=== PATIENT | male | born 1995 | race Asian ===

== ENCOUNTER 2018-02-25 02:44 | Emergency (ER) | payer SELFPAY ==
[~2018-02-25] VITALS: Ht 182.9 cm; Wt 95.3 kg
--- OUTSIDE RECORDS SUMMARY | 2018-02-25 02:51 | XMS REPORT ---
Author Author DANI GAMBOA [facility] Address [address] [place] [address] Care Team Providers Care Bar Turner Name Role Phone DANI GAMBOA Unavailable PROBLEMS Unknown Problems ALLERGIES No Information ENCOUNTERS Encounter Location Date Diagnosis [facility] [address] [facility] [id number] [address] Apr, Visit for TB skin test Z11.1 IMMUNIZATIONS No Known Immunizations SOCIAL HISTORY Never Assessed REASON FOR VISIT TB skin test- Antione Allred RN PLAN OF CARE Activity Details Follow Up 48-72 hours Reason: VITAL SIGNS MEDICATIONS Unknown Medications RESULTS No Results PROCEDURES Procedure Date Ordered Result Body Site TB INTRADERMAL 2017-04-26 N/A TB INTRADERMAL TEST Apr 26, 2017 INSTRUCTIONS MEDICATIONS ADMINISTERED No Known Medications
[2018-02-25] MEDS ORDERED: RT-ALBUTEROL/IPRATROPIUM 3 ML (DUONEB) VIAL ONE (02:53)
[2018-02-25] MEDS ORDERED: RT-ALBUTEROL/IPRATROPIUM 3 ML (DUONEB) VIAL INH ONE (03:00)
[2018-02-25] MEDS ORDERED: RX-ALBUTEROL INHALER (PROAIR) 8 GM IH STA (03:02)
--- NOTE | 2018-02-25 03:40 | ED Respiratory ---
General Chief Complaint: Respiratory Problems Stated Complaint: ASTHMA ATTACK Nursing Triage Note: AMBULATORY TO ED WITH C/O HAVING ASTHMA ATTACK. NO LABORED BREATHING UPON TRIAGE. 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 Source: patient Exam Limitations: no limitations History of Present Illness Date Seen by Provider: Feb 25, 2018 Time Seen by Provider: 02:49 Initial Comments PT ARRIVES VIA POV C/O ASTHMA ATTACK--BEGAN 30 MINUTES AGO STATES HE HAS BEEN AT A FRIEND'S HOUSE TONIGHT--DOGS, CATS, SMOKING IN HOME BEGAN HAVING DIFFICULTY BREATHING, CHEST TIGHTNESS AND PAIN ON BREATHING STATES SYMPTOMS HAVE IMPROVED SINCE BEING OUT IN COLD AIR PT STATES HE RARELY HAS ASTHMA FLARE-UP'S, AND LAST ONE WAS 7 YEARS AGO. DOES NOT HAVE AN INHALER, ALTHOUGH HE HAS BEEN PRESCRIBED THEM NO FEVER OR RECENT ILLNESS PT HAS HAD 3-4 DRINKS TONIGHT PCP: DR. CASAS Allergies and Home Medications Allergies Coded Allergies: No Known Drug Allergies (Unverified , 02/25/18) Patient Home Medication List Home Medication List Reviewed: Yes Review of Systems Review of Systems Constitutional: no symptoms reported EENTM: no symptoms reported Respiratory: see HPI, short of breath Cardiovascular: see HPI, chest pain Gastrointestinal: no symptoms reported Genitourinary: no symptoms reported Musculoskeletal: no symptoms reported Skin: no symptoms reported Psychiatric/Neurological: No Symptoms Reported Hematologic/Lymphatic: No Symptoms Reported Immunological/Allergic: no symptoms reported Past Iiggduu-Sxmhgg-Abrwls Hx Patient Social History Alcohol Use: Occasionally Uses Recreational Drug Use: No Smoking Status: Never a Smoker 2nd Hand Smoke Exposure: Yes Recent Foreign Travel: No Contact w/Someone Who Travel: No Recent Infectious Disease Expo: No Recent Hopitalizations: No Immunizations Up To Date Tetanus Booster (TDap): Less than 5yrs PED Vaccines UTD: Yes Seasonal Allergies Seasonal Allergies: Yes Past Medical History Surgeries: No Respiratory: Yes Asthma Cardiac: No Neurological: No Genitourinary: No Gastrointestinal: No Musculoskeletal: No Endocrine: No HEENT: No Cancer: No Psychosocial: No Integumentary: No Blood Disorders: No Physical Exam Vital Signs - First Documented 02/25/18 02/25/18 02/25/18 02:49 03:05 03:47 Temp 99.7 Pulse 107 Resp 19 B/P (MAP) 145/98 (114) Pulse Ox 99 O2 Delivery Room Air Capillary Refill : Less Than 3 Seconds Height: 6'0" Weight: 210lbs. oz. 95.641330mq; BMI Method:Stated General Appearance: WD/WN, no apparent distress, other (FAINT ODOR OF ETOH) HEENT: PERRL/EOMI, normal ENT inspection (EXCEPT FOR POST NASAL DRAINAGE), TMs normal, pharynx normal Neck: normal inspection Respiratory: normal breath sounds, no respiratory distress, no accessory muscle use Cardiovascular: regular rate, rhythm, no murmur Gastrointestinal: non tender, soft Extremities: normal inspection, normal capillary refill Neurologic/Psychiatric: checkman II-XII nml as tested, no motor/sensory deficits, alert, normal mood/affect, oriented x 3 Skin: normal color, warm/dry Progress/Results/Core Measures Suspected Sepsis Recent Fever Within 48 Hours: No Infection Criteria Present: None New/Unexplained Altered Menta: No Sepsis Screen: No Definite Risk SIRS Temperature:99.7 Pulse: 107 Respiratory Rate: Blood Pressure 145 /98 Mean: 114 Results/Orders My Orders Orders - KAHLIL MCCALL DO Albuterol/Ipra Inhalation Soln (Duoneb I (02/25/18 02:53) Chest Pa/Lat (2 View) (02/25/18 02:58) Albuterol/Ipra Inhalation Soln (Duoneb I (02/25/18 03:00) Rt Request For Service (02/25/18 02:58) Svn Small Volume Nebulizer (02/25/18 02:58) Rx-Albuterol Inhaler (Rx-Proair) (02/25/18 03:02) Medications Given in ED Current Medications Medications Dose Ordered Sig/John Route Start Time Stop Time Status Last Admin Dose Admin Albuterol/ Ipratropium 3 ml ONCE ONCE INH 02/25/18 03:00 02/25/18 03:01 DC 02/25/18 02:57 3 ML Vital Signs/I&O 02/25/18 02/25/18 02/25/18 02/25/18 02:49 03:05 03:06 03:47 Temp 99.7 99.7 Pulse 107 90 Resp 19 B/P (MAP) 145/98 (114) 129/70 (89) Pulse Ox 99 99 99 O2 Delivery Room Air Room Air Room Air Room Air Capillary Refill : Less Than 3 Seconds Blood Pressure Mean: 114 Progress Note : Progress Note GIVEN DUO NEB TREATMENT, STATES HE FEELS MUCH BETTER. INCREASED AERATION AFTER NEB TREATMENT Diagnostic Imaging Comments CXR--NO ACUTE PROCESS, PENDING RADIOLOGIST REVIEW Reviewed: Reviewed by Me Departure Impression Primary Impression: Asthma exacerbation Disposition: HOME, SELF-CARE Condition: Improved Departure-Patient Inst. Referrals: DEEPAK CASAS DO (PCP/Family) Primary Care Physician Patient Instructions: Asthma, Adult (DC) Add. Discharge Instructions: AVOID KNOWN TRIGGERS USE ALBUTEROL INHALER 2 PUFFS EVERY 4 HOURS NEEDED FOLLOW UP WITH DR. CASAS ON MONDAY IF NO BETTER, RETURN TO ER IF WORSE All discharge instructions reviewed with patient and/or family. Voiced understanding. KAHLIL MCCALL DO Feb 25, 2018 03:39
[2018-02-25 03:47] VITALS: BP 129/70
--- NOTE | 2018-02-25 06:49 | Diagnostic Imaging Report ---
PA and lateral chest at 0332. INDICATION: Respiratory distress. There are no prior studies available for comparison. Heart size is within normal limits. The lungs are clear. There is no evidence for pneumonia or for pleural effusion. There is no sign of pneumothorax. Mediastinum is not widened. The osseous structures are intact. IMPRESSION: There is no evidence for an acute cardiopulmonary abnormality. Dictated by: Dictated on workstation # [id number]
== END 2018-02-25 03:45 | disposition home or self-care (01) ==
LOC: EDUNIT# 02:44 → ER 02:48
DX: J45.901 Unspecified asthma with (acute) exacerbation (principal); Z91.14 Patient's other noncompliance with medication regimen; Z77.22 Contact with and (suspected) exposure to environmental tobacco smoke (acute) (chronic)
CPT/HCPCS: 71046; 94640